=== PATIENT | female | born 1995 | race African-American/Black ===

== ENCOUNTER 2017-06-01 10:46 | Emergency (ER) | payer SELFPAY ==
[2017-06-01] MEDS ORDERED: ACETAMINOPHEN 325 MG TAB ONE (10:56)
== END 2017-06-01 11:14 | disposition home or self-care (01) ==
LOC: EDH 10:46
DX: S93.492A Sprain of other ligament of left ankle, initial encounter (principal); Z87.891 Personal history of nicotine dependence; X58.XXXA Exposure to other specified factors, initial encounter; Y93.89 Activity, other specified; Y92.89 Other specified places as the place of occurrence of the external cause; Y99.8 Other external cause status
CPT/HCPCS: 73610

== ENCOUNTER 2017-07-02 17:51 | Emergency (ER) | payer SELFPAY ==
[2017-07-02 18:34] LABS: BASOPHILS % (AUTO) 0.3 % (0.0-5.0); EOSINOPHILS % (AUTO) 1.2 % (0.0-8.0); HEMATOCRIT 37.4 % (36-48); LYMPHOCYTES % (AUTO) 14.2 % (21.0-51.0); MEAN CORPUSCULAR HEMOGLOBIN 33.4 pg (27.0-33.0); MEAN CORPUSCULAR VOLUME 95.7 fL (79-99); MONOCYTES % (AUTO) 6.9 % (3.0-13.0); NEUTROPHILS % (AUTO) 77.4 % (40.0-77.0); PLATELET COUNT (AUTO) 302 K/uL (130-400); RED BLOOD CELL COUNT(AUTO) 3.91 MIL/uL (4.00-5.50); RED CELL DISTRIBUTION WIDTH 12.8 % (11.0-15.5); WHITE BLOOD COUNT (AUTO) 7.4 K/uL (4.8-10.8)
[2017-07-02 18:36] LABS: APPEARANCE,URINE Clear (CLEAR); BILIRUBIN,URINE Negative (NEGATIVE); COLOR,URINE Yellow (YELLOW); GLUCOSE, URINE (UA) Negative (NEGATIVE); KETONES,URINE Negative (NEGATIVE); LEUKOCYTE ESTERASE ,URINE Moderate (NEGATIVE); NITRATE,URINE Negative (NEGATIVE); OCCULT BLOOD,URINE Negative (NEGATIVE); PH,URINE 8.5 (5.0-8.0); PROTEIN,URINE Negative (NEGATIVE); UROBILINOGEN,URINE 0.2 mg/dL (0.2-1.0)
[2017-07-02 18:41] LABS: HCG,QUAL RESULT NEGATIVE (NEGATIVE)
[2017-07-02 18:43] LABS: BACTERIA,URINE Rare /HPF (None Seen); RBC,URINE 0-1 /HPF (0-1); SQUAMOUS EPITHELIAL CELL,UR Rare /LPF (0-2)
[2017-07-02 18:47] LABS: CREATININE 0.8 mg/dL (0.5-1.5)
[2017-07-02] MEDS ORDERED: IOPAMIDOL-370 75 ML VIAL IV ONE (20:10)
[2017-07-02] MEDS ORDERED: CEFTRIAXONE SODIUM 1 GM ONE (20:59)
== END 2017-07-02 21:21 | disposition home or self-care (01) ==
LOC: EDH 17:51
DX: N39.0 Urinary tract infection, site not specified (principal)
CPT/HCPCS: 36415; 74177; 76705; 80048; 81001; 81025; 85025; 96374; 99285; J0696; Q9967